=== PATIENT | male | born 1975 | race Caucasian/White ===

== ENCOUNTER 2021-08-29 00:50 | Emergency (ER) | payer SELFPAY ==
[~2021-08-29] VITALS: Ht 180.3 cm; Wt 108.9 kg
[2021-08-29 00:56] VITALS: BP 164/93
[2021-08-29] MEDS ORDERED: SULF-59 PO (00:56)
[2021-08-29] MEDS ORDERED: MUPI1OIN TP (00:56)
--- NOTE | 2021-08-29 00:56 | NUR ---
TO BED AMBULATORY
--- NOTE | 2021-08-29 00:59 | NUR ---
SEEN AND EXAMINED BY VASQUEZ
[2021-08-29 01:05] VITALS: BP 164/93
--- NOTE | 2021-08-29 01:05 | NUR ---
Patient discharged with v/s stable. Written and verbal after care instructions given and explained. Patient alert, oriented and verbalized understanding of instructions. Ambulatory with steady gait. All questions addressed prior to discharge. ID band removed. Patient advised to follow up with PMD. Rx of BACTRIM DS, MUPIROCIN given. Patient educated on indication of medication including possible reaction and side effects. Opportunity to ask questions provided and answered.
== END 2021-08-29 01:05 | disposition home or self-care (01) ==
LOC: MED 00:50
DX: L02.01 Cutaneous abscess of face (principal); Z79.899 Other long term (current) drug therapy
CPT/HCPCS: 99283